=== PATIENT | female | born 1960 | race Caucasian/White ===

== ENCOUNTER → 2018-09-23 | Outpatient (CLI) | payer OTHER ==
[~2018-09-23] MED LIST: AMLO-125 PO; ASC500 PO; AUG875 PO; CALC-965 PO; CEP500 PO; CYCL10TA29 PO; HYDR-317 PO; IBU200 PO; IBUP600T22 PO
--- NOTE | 2018-09-23 14:38 | RADIOLOGY IMAGING REPORT ---
FACILITY: [facility] PATIENT NAME: ARVIND MAO : [id number] MR: [id number] V: [id number] EXAM DATE: [id number] ORDERING PHYSICIAN: CARLOTA MCINTOSH TECHNOLOGIST: Erin Vance PROCEDURE: BILATERAL DIGITAL SCREENING MAMMOGRAM WITH CAD ASSISTED INTERPRETATION & 3D TOMOSYNTHESIS REASON FOR STUDY: Screening. FAMILY HISTORY OF BREAST CANCER: Paternal cousin BREAST PROCEDURES/TREATMENTS: Benign surgical biopsy on Left & aspiration on Left COMPARISON: 12/04/16, 08/16/14, 08/14/14, 12/16, VIEWS OBTAINED: Bilateral 2D & 3D full field CC & MLO & bilateral full field 2D XCC BREAST DENSITY: The breasts are heterogeneously dense which can obscure small masses. MAMMOGRAM FINDINGS: The parenchymal pattern has remained stable allowing for difference in mammographic technique & patient positioning. ASSESSMENT: BIRADS 1: Negative. DIAGNOSTIC CATEGORY 1--NEGATIVE. RECOMMENDATIONS: ROUTINE MAMMOGRAM AND CLINICAL EVALUATION. Dictated by: Barbara Adams M.D. on 09/23/2018 at 11:51 Transcribed by: MICH on 09/23/2018 at 14:14 Approved by: Barbara Adams M.D. on 09/23/2018 at 14:36 [facility]
== END ==
LOC: MAMO 00:20
PROVIDERS: ATTEND Physician Assistant
DX: Z12.31 Encounter for screening mammogram for malignant neoplasm of breast (principal); Z80.3 Family history of malignant neoplasm of breast
CPT/HCPCS: 77063; 77067